=== PATIENT | male | born 1970 | race Caucasian/White ===

== ENCOUNTER → 2018-08-11 11:03 | Outpatient (CLI) | payer SELFPAY ==
--- NOTE | 2018-08-11 11:09 | XR_ITS ---
XR elbow RT min 3V HISTORY: ITS.REASON: RT ELBOW PAIN ORDERING PHYSICIAN: Caryn Choi APRN PATIENT AGE: 48 years COMPARISON: None FINDINGS: There are no previous exams available for comparison. The distal humerus is angulated laterally. Prominent spurring is present anteriorly at the distal humerus medially and at the coracoid process. A loose body is present posteriorly in the olecranon fossa region measuring 18 mm. IMPRESSION: 1. 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 2. Lateral angulation of the distal humerus consistent with an old injury
== END ==
PROVIDERS: PCP Emergency Medicine; Visit Provider Nurse Practitioner Family
DX: M25.521 Pain in right elbow (principal)
CPT/HCPCS: 73080

== ENCOUNTER → 2021-06-26 14:23 | Outpatient (CLI) | payer SELFPAY | PROVIDERS: Visit Provider Nurse Practitioner Family | DX: R42 Dizziness and giddiness (principal) | CPT/HCPCS: 87086 ==

== ENCOUNTER 2022-01-07 10:09 | Emergency (ER) | payer SELFPAY ==
[2022-01-07 10:30] VITALS: BP 149/94; PULSE 76; RESP 18; TEMP 36.6; O2SAT 98; BMI 28.1
--- NOTE | 2022-01-07 10:56 | EXP.UTC ---
Discharge Plan Disposition Patient Disposition: Home, Self-Care Condition: Good Prescriptions Prescriptions: New cephalexin 500 mg capsule 500 mg PO QID 10 Days Qty: 40 0RF sulfamethoxazole-trimethoprim [Bactrim DS] 800-160 mg tablet 1 tab PO Q12H 10 Days Qty: 20 0RF No Action diltiazem HCl 240 mg capsule,extended release 24 hr 240 mg PO DAILY cephalexin 500 mg capsule 500 mg PO Q12H 10 Days Qty: 20 0RF Referrals Follow up/Referrals: Kayleigh Do APRN [Primary Care Provider] - See instructions Activity Restrictions/Add. Instructions Additional Instructions/Restrictions: *Start antibiotic(s) immediately and be sure to take as ordered for the FULL length of time although you may be feeling better or start to see improvement in the next 24-48 hours *Monitor closely. Outlined redness so that you can monitor easier. Follow up immediately for new or worsening symptoms including but not limited to redness, swelling, streaking from site fever or chills. *Warm compress 15 minutes 3-4 times day *Never squeeze or pop these on your own. Seek immediate medical attention next time this occurs *Monitor Temp. Tylenol every 4 hours as needed and ibuprofen every 6 hours as needed (as long as your primary care doctor has told you that it is ok to take both. For fever, aches, pain. ER if no less that 101 despite Tylenol and ibuprofen ?Follow up with your family doctor/primary care physician in the next 48-72 hours if no improvement Clinical Impressions Clinical Impression: Cellulitis Instructions Patient Instructions: Cellulitis Discharge ED Provider: Yvonne Mckenzie [facility] General Stated complaint: AO 12/30/21 Cut LT leg Mode of Arrival: Ambulatory Source of Information: Patient and Spouse Limitations: No Limitations Time Seen by Provider: 01/07/22 10:56 Description of Symptoms (Recalled from Triage Doc. by RN): PATIENT STATES HE HIT HIT LEFT LEG ON A CEDAR POST ON 12/30. TODAY HE C/O REDNESS TO AREA THAT GOES UP THE LEG AND PAIN AROUND KNEE AREA HEENT Symptoms (Recalled from RN notes): No Resp Symptoms (Recalled from RN notes): No Skin Symptoms (Recalled from RN notes): Yes MS Symptoms (Recalled from RN notes): No Functional Status (Recalled from RN notes): WNL History of Present Illness Provider Complaint: Patient states that foot ag on 12/30 and struck himself in the left guadarrama area causing small cut to his lower leg State that he has been putting salve on it but noticed he was having some swelling yesterday and redness around the lac that is starting to move up his leg State that this morning he was a little achy in his knee that is relived with walking and wanted to come in and get it checked before it got too bad Related Data Home Medications Medication Instructions Recorded Confirmed diltiazem HCl 240 mg capsule,24 240 mg PO DAILY 09/16/18 06/26/21 hr,extended release Previous Rx's Medication Instructions Recorded cephalexin 500 mg capsule 500 mg PO Q12H 10 days #20 caps 06/26/21 cephalexin 500 mg capsule 500 mg PO QID 10 days #40 caps 01/07/22 sulfamethoxazole 800 1 tab PO Q12H 10 days #20 tabs 01/07/22 mg-trimethoprim 160 mg tablet (Bactrim DS) Allergies Allergy/AdvReac Type Severity Reaction Status Date / Time No Known Allergies Allergy Verified 06/26/21 13:03 Worker's Comp Is this a Worker's Comp case?: No PFSH PFSH Medical History (Updated 01/07/22 @ 11:37 by Yvonne Mckenzie APRN) Atrial fibrillation Hypertension Social History (Updated 01/07/22 @ 10:45 by Jacy Iqbal RN) Smoking Status: Never smoker alcohol intake: never current occupational status: other Travel in the last 8 weeks: None ROS Obtained: Yes All systems reviewed & no additional complaints except as documented and Yes Systems reviewed as appropriate & no additional complaints except as documented Constitutional Constitutional: Reports system reviewed and no additional complaints, e
--- NOTE | 2022-01-07 11:01 | XR_ITS ---
FINAL REPORT CLINICAL HISTORY: INJURY 1 week ago, pain and redness mid leg FINDINGS: LEFT TIBIA FIBULA 2 views were obtained. There is no acute fracture or dislocation. The joint spaces are intact. There is no soft tissue abnormality. IMPRESSION: No acute fracture Reviewed, Interpreted and Dictated by Jacqueline Patel MD Transcribed by Genesis Spaulding Authenticated and [facility]
[2022-01-07 11:48] VITALS: BP 149/94; PULSE 76; RESP 18; TEMP 36.6; O2SAT 98
== END 2022-01-07 11:50 | disposition home or self-care (01) ==
PROVIDERS: Emergency Provider Nurse Practitioner; PCP Nurse Practitioner Family
DX: L03.116 Cellulitis of left lower limb (principal)
CPT/HCPCS: 73590; 99212; G0463

== ENCOUNTER 2022-01-09 10:00 | Emergency (ER) | payer SELFPAY ==
[2022-01-09 10:02] VITALS: BP 156/104; PULSE 70; RESP 16; TEMP 36.7; O2SAT 97; BMI 27.3
--- NOTE | 2022-01-09 10:05 | HMH.EDGENADL ---
Discharge Plan Disposition Patient Disposition: Home, Self-Care Prescriptions Prescriptions: No Action diltiazem HCl 240 mg capsule,extended release 24 hr 240 mg PO DAILY aspirin [Aspir-81] 81 mg Tablet,Delayed Release (Dr/Ec) 81 mg PO DAILY sulfamethoxazole-trimethoprim [Bactrim DS] 800-160 mg tablet 1 tab PO Q12H cephalexin 500 mg capsule 500 mg PO QID Clinical Impressions Clinical Impression: Leg injury Instructions Patient Instructions: Contusion, DI for Contusion Discharge ED Provider: Mckinley Hickey General Adult HPI General Chief complaint: Extremity Injury, Lower Stated complaint: discoloration, slight pain in Lt leg Time Seen by Provider: 01/09/22 10:05 Mode of Arrival: Ambulatory History of Present Illness HPI narrative: 51-year-old male with past medical history of atrial fibrillation on aspirin, reports history of blood clots as well other not on anticoagulant. He sustained an injury whereby and adze struck the guadarrama of the left lower extremity on 12/30, approximately 10 days ago. He was subsequently seen in the urgent care for redness of the lower extremity was started on Bactrim and Keflex. He had reported knee pain previously that seemed to improve after antibiotics. He presents back today as there is a red area which has enlarged to approximately 5 cm and purpleish discoloration distally. He also reports sensation of fullness in the thigh on the left. He denies fever, chills, nausea, vomiting, palpitations, chest pain or trouble breathing. Related Data Home Medications Medication Instructions Recorded Confirmed diltiazem HCl 240 mg capsule,24 240 mg PO DAILY afib 09/16/18 01/09/22 hr,extended release aspirin 81 mg tablet,delayed 81 mg PO DAILY heart, hx of afib 01/09/22 01/09/22 release cephalexin 500 mg capsule 500 mg PO QID cellulitis 01/09/22 01/09/22 sulfamethoxazole 800 1 tab PO Q12H cellulitis 01/09/22 01/09/22 mg-trimethoprim 160 mg tablet (Bactrim DS) Allergies Allergy/AdvReac Type Severity Reaction Status Date / Time No Known Allergies Allergy Verified 06/26/21 13:03 [facility] Medical History (Updated 01/09/22 @ 11:34 by Mckinley Hickey MD) Atrial fibrillation Hypertension Surgical History (Updated 01/09/22 @ 10:38 by Yessi Knox RN) History of radiofrequency ablation (RFA) procedure for cardiac arrhythmia Social History Smoking Status: Never smoker alcohol intake: never current occupational status: other Travel in the last 8 weeks: None ROS Obtained: Yes Systems reviewed as appropriate & no additional complaints except as documented Constitutional Constitutional: Reports system reviewed and no additional complaints, except as documented Eyes Eyes: Reports system reviewed and no additional complaints, except as documented ENT Ears, Nose, Mouth, and Throat: Reports system reviewed and no additional complaints, except as documented Cardiovascular Cardiovascular: Reports system reviewed and no additional complaints, except as documented Respiratory Respiratory: Reports system reviewed and no additional complaints, except as documented Gastrointestinal Gastrointestingal: Reports system reviewed and no additional complaints, except as documented Genitourinary Male Genitourinary: Reports system reviewed and no additional complaints, except as documented Musculoskeletal Musculoskeletal: Reports system reviewed and no additional complaints, except as documented and Reports as per HPI Integumentary/Breasts Skin/Breast: Reports system reviewed and no additional complaints, except as documented Neurologic Neurologic: Reports system reviewed and no additional complaints, except as documented Endocrine Endocrine: Reports system reviewed and no additional complaints, except as documented Hematologic/Lymphatic Henatologic/Lymphatic: Reports system reviewed and no additional
--- NOTE | 2022-01-09 10:13 | PC.NURSE ---
pt getting changed into a gown at this time
--- NOTE | 2022-01-09 10:20 | PC.NURSE ---
ER at gave verbal orders for labs and venous doppler order.
[2022-01-09 10:23] VITALS: BMI 27.3
--- NOTE | 2022-01-09 10:23 | CA_ITS ---
FINAL REPORT TECHNIQUE: Compression no scale and Doppler evaluation CLINICAL HISTORY: hx of dvt > 5 years ag, swelling, pain is thigh. Redness left calf anterior portion. Patient states he recently started antibiotics for treatment of leg. FINDINGS: Femoral and popliteal veins show normal compressibility and flow. Visualized portion of the calf veins are patent by Doppler exam. IMPRESSION: No evidence of left lower extremity deep venous thrombosis Reviewed, Interpreted and Dictated by Jacqueline Patel MD Transcribed by Chino Pennington Authenticated and [facility]
[2022-01-09 10:30] VITALS: BP 128/93; PULSE 69; RESP 18; O2SAT 97
--- NOTE | 2022-01-09 10:30 | PC.NURSE ---
ECHO LAB NOTIFIED
--- NOTE | 2022-01-09 10:38 | PC.NURSE ---
cv lab staff notified of doppler order
--- NOTE | 2022-01-09 10:43 | PC.NURSE ---
CV lab staff at
--- NOTE | 2022-01-09 10:44 | PC.NURSE ---
ECHO LAB HERE FOR DOPPLER
[2022-01-09 10:45] VITALS: BP 184/97; PULSE 67; O2SAT 95
[2022-01-09 10:54] LABS: Chloride 98 mmol/L (98-107); Sodium 137 mmol/L (136-145)
[2022-01-09 10:55] LABS: Potassium 4.3 mmoL/L (3.5-5.1)
[2022-01-09 10:57] LABS: Alanine Aminotransferase 27 U/L (12-78); Albumin Level 4.7 g/dl (3.5-5.0); Alkaline Phosphatase 57 U/L (38-126); Aspartate Amino Transferase 36 U/L (17-59); Blood Urea Nitrogen 14 mg/dl (9-20); Creatinine Clearance Estimated 101 mL/min (50-200); Estimated Glomerular Filt Rate 79 ml/min (>60); GFR (African American) 95 ML/MIN (>60)
[2022-01-09 10:58] LABS: Albumin/Globulin Ratio 1.9 (1.1-1.8); Anion Gap 17.3 mEq/L (5-15); Bilirubin,Total < 0.1 mg/dl (0.2-1.3); Carbon Dioxide 26 mmol/L (22.0-30.0); Globulin 2.5 g/dL (1.3-3.2); Glucose 104 mg/dl (74-100); Total Protein,Serum 7.2 g/dl (6.3-8.2)
[2022-01-09 11:00] VITALS: BP 130/91; PULSE 75; RESP 18; O2SAT 98
--- NOTE | 2022-01-09 11:00 | PC.NURSE ---
per cv lab staff, states pt doppler if negative. Notified ER
[2022-01-09 11:06] LABS: Basophils # 0.2 K/mm3 (0-0.2); Eosinophils # 0.2 K/mm3 (0.0-0.4); Eosinophils % 3.1 % (0.1-12.0); Hematocrit 48.7 % (42.0-52.0); Hemoglobin 16.2 g/dL (14.1-18.0); Lymphocytes # 1.6 K/mm3 (0.7-4.5); Lymphocytes % 25.2 % (10-50); Mean Corpuscular HGB Conc 33.2 g/dL (31.8-35.4); Mean Corpuscular Hemoglobin 31.2 pg (27.0-31.2); Mean Platelet Volume 8.2 fl (7.4-10.4); Monocytes # 0.6 K/mm3 (0.1-1.0); Neutrophils # 3.8 K/mm3 (1.8-7.8); Neutrophils % 59.7 % (37.0-80.0); Platelet Count 252 K/mm3 (142-424); Red Blood Count 5.18 M/mm3 (4.60-6.20); Red Cell Distribution Width 13.3 % (11.5-17.5); White Blood Count 6.4 K/mm3 (4.8-10.8)
[2022-01-09 11:14] LABS: Procalcitonin 0.042 ng/mL (0.0-2.0)
--- NOTE | 2022-01-09 11:18 | PC.NURSE ---
checked on pt, he was lying in bed , nothing needed at this time
--- NOTE | 2022-01-09 11:23 | PC.NURSE ---
michael shah came by to check on pts
[2022-01-09 11:54] VITALS: BP 139/89; PULSE 76; RESP 18; TEMP 36.7; O2SAT 99
== END 2022-01-09 11:54 | disposition home or self-care (01) ==
PROVIDERS: Emergency Provider Emergency Medicine
DX: S89.92XA Unspecified injury of left lower leg, initial encounter (principal); W22.8XXA Striking against or struck by other objects, initial encounter
CPT/HCPCS: 80053; 84145; 85025; 93971; 99284

== ENCOUNTER → 2022-10-16 14:15 | Outpatient (CLI) | payer SELFPAY | LOC: RT 14:15 | PROVIDERS: Visit Provider Internal Medicine | DX: R06.02 Shortness of breath (principal) | CPT/HCPCS: 93306 ==

== ENCOUNTER → 2022-11-17 06:50 | Outpatient (CLI) | payer SELFPAY ==
--- NOTE | 2022-11-17 | CA_ITS ---
APPROVED REPORT Exam: Pharmacologic Technologist: Lety Douglas, Ht: 5 ft 9 in Wt: 189 lbs BSA: 2.02 m2 HR: 59 bpm BP: 129/86 mmHg Rhythm: NSR Medical History Medications: BisOPROLOL Fumarate,,,,, Losartan-HCTZ,,,,, DilTiazem HCI,,,,, Stress Test Details Test: Donnell HR Resting HR: 54 bpm Max Heart Rate (APMHR): 168 bpm Max HR Achieved: 108 bpm Target HR (85% APMHR): 143 bpm % of APMHR: 64 Recovery HR: 64 bpm HR response to stress: Blunted HR response to stress BP Resting BP: 134.0/94.0 mmHg Max BP: 161.0/71.0 mmHg Recovery BP: 147.0/75.0 mmHg BP response to stress: Normal blood pressure response to stress. ECG Resting ECG: Sinus bradycardia Stress EC mm horizontal ST depression Arrhythmia: None Recovery ECG: Return to baseline within 3 minutes of recovery Recovery Arrhythmia: None Clinical Exercise duration: 08:43 min Highest Stage Achieved: III Exercise capacity: 10.1 METs Overall Exercise Capacity for Age: Average Stress ECG Conclusion This was a suboptimal EKG stress test due to inability to achieve > 85% max HR. The patient was able to exercise for a total of 8:43. He achieved 10.1 METS. He has a blunted HR response, but normal BP response, to exercise Max HR: 108 % of PM: 64 Max BP: 161/71 METs: 10.1 Test stopped due to: dyspnea Symptoms: Dyspnea Arrhythmias/Ectopy: None ST-T Changes: [address] depression. Conclusion: Average exercise capacity. Blunted HR response to exercise. Suboptimal ECG stress test due to inability to achieve target HR. At peak stress, ECG stress test demonstrates [address] depression, suggestive of possible ischemia. Test Summary REST . . . . . . . Sitting REST . . . . . . . Standing REST 02:42 0.0 0.0 54 . 134/ 94 . . Stage 1 01:00 10.0 1.7 78 . . . . Stage 1 02:00 10.0 1.7 85 . . . . Stage 1 03:00 10.0 1.7 87 . . . . Stage 2 01:00 12.0 2.5 91 . 142/ 90 . . Stage 2 02:00 12.0 2.5 96 . 142/ 90 . . Stage 2 03:00 12.0 2.5 98 . 140/ 92 . . Stage 3 01:00 14.0 3.4 105 . . . . Stage 3 . . . . . . . Myoview Injected Stage 3 02:00 14.0 3.4 105 . . . . Stage 3 02:43 14.0 3.4 108 . . . Stop exercise at 08:43 RECOVERY 01:00 0.0 0.0 86 . 158/ 94 . . RECOVERY 02:00 0.0 0.0 65 . 158/ 94 . . RECOVERY 03:00 0.0 0.0 73 . 144/ 78 . . RECOVERY 04:00 0.0 0.0 69 . 161/ 71 . . RECOVERY 05:00 0.0 0.0 64 . 161/ 71 . . RECOVERY 05:47 0.0 0.0 64 . 147/ 75 . . Electronically signed by : Santa Wilcox, 11/17/2022 23:04:03
--- NOTE | 2022-11-17 06:55 | NM_ITS ---
APPROVED REPORT Exam: Nuclear Stress Test Indication: HTN, C.P., SOB, PALPITATIONS, SYNCOPE Patient Location: Outpatient Stress Tech: Lety Donald [place] Tech:Dede Li, ARRT RT (R)(N)(M) Ht: 5 ft 7 in Wt: 180 lbs HR: 59 bpm BP: 129/86 mmHg BSA: 1.93 m2 Rhythm: NSR TID: 1.12 BMI: 28.1 History: HTN, C.P., SOB, PALPITATIONS, SYNCOPE Procedure: Patient exercised on Donnell protocol 8:43 minutes and sec, resting heart rate 59 bpm, resting blood pressure 129/86 mmHg, with exercise maximum heart rate achived was 108 bpm which is 64 % of the maximum predicted heart rate and blood pressure was 161/71 mmHg. Test was stopped due to SOB. Patient denied any complaint of chest pain. Patient has Average exercise capacity, achieved 10.1 METs of workload on treadmill, the blood pressure response to exercise was Normal. Cardiac Stress and Resting SPECT Images: Cardiac Stress and Resting SPECT images were obtained using technetium 99m Myoview 31.9 mCi stress and 10.24 mCi at rest. This was a limited study as the stress test was suboptimal due to patient unable to achieve target HR during treadmill exercise. Also, the patient could not lie on his abdomen. Therefore, prone stress imaging could not be obtained. This may affect the diagnostic interpretation of the study findings. Resting and stress imaging in supine position demonstrate a medium sized, moderate, fixed perfusion defect in the inferior LV wall. The perfusion defect has a tapered appearance, suggestive of possible diaphragmatic attenuation. True perfusion defect cannot be entirely ruled out due to limited study. Gated imaging demonstrates normal global and regional LV systolic function. LVEF is calculated at 54%. Conclusion: This was a suboptimal stress test due to patient unable to achieve target HR during treadmill exercise. Also, the patient could not lie on his abdomen. Therefore, prone stress imaging could not be obtained. This may affect the diagnostic interpretation of the study findings. Resting and stress imaging in supine position demonstrate a medium sized, moderate, fixed perfusion defect in the inferior LV wall. The perfusion defect has a tapered appearance, suggestive of possible diaphragmatic attenuation. True perfusion defect cannot be entirely ruled out due to limited study in the setting of 1) suboptimal stress testing, and 2) possible diaphragmatic attenuation. Gated imaging demonstrates normal global and regional LV systolic function. LVEF is calculated at 54%. Electronically signed by : Santa Wilcox, 11/17/2022 23:09:26
== END ==
LOC: RAD 06:52
PROVIDERS: Visit Provider Internal Medicine
DX: R07.89 Other chest pain (principal); R06.09 Other forms of dyspnea
CPT/HCPCS: 78452; 93017; A9502

== ENCOUNTER 2022-12-08 07:36 | Day surgery (SDC) | payer SELFPAY ==
[2022-12-08] VITALS (11 sets, daily range): BP systolic 95–140; BP diastolic 46–92; PULSE 56–69; RESP 16–20; O2SAT 93–98; BMI 28.2
--- NOTE | 2022-12-08 07:07 | IR_ITS ---
APPROVED REPORT Patient Location: Outpatient PROCEDURES Left heart catheterization Left ventriculogram Selective coronary angiogram INDICATION Abnormal stress test Informed consent was obtained prior to the procedure. COMPLICATIONS None Estimated Blood Loss: Less than 10 mls TECHNIQUE One percent lidocaine used to anesthetize the right anterior aspect of the wrist. The right radial artery was accessed via the Seldinger technique. A 6 Divehi sheath was placed in the right radial artery. 2.5 mg of Verapamil, 800 mcg of nitroglycerin, 1mg Lidocaine and 5000 U Heparin were given through the arterial sheath. The papa catheter was also used to perform left heart catheterization, left ventriculogram and selective coronary angiogram. At the end of the procedure the sheath was removed good hemostasis was achieved using Traclet band, patient was transferred to the postop holding area in stable condition. ANGIOGRAPHIC RESULTS The left main artery Normal The left anterior descending artery Normal The circumflex artery Codominant normal The right coronary artery Codominant normal The LEDESMA ventriculogram reveals Normal 65% The left ventricular end-diastolic pressure 10 to 15 mmHg IMPRESSION Normal coronary arteries Normal ejection fraction Normal left ventricular diastolic pressure PLAN 1. Continue treatment of hypertension Electronically signed by : Ruiz Bradshaw MD 12/08/2022 09:45:51
[2022-12-08 08:06] LABS: Basophils % 0.3 % (0.1-2.0); Eosinophils # 0.4 K/mm3 (0.0-0.4); Eosinophils % 5.1 % (0.1-12.0); Hematocrit 47.1 % (42.0-52.0); Hemoglobin 15.6 g/dL (14.1-18.0); Lymphocytes # 2.2 K/mm3 (0.7-4.5); Lymphocytes % 29.2 % (10-50); Mean Corpuscular HGB Conc 33.1 g/dL (31.8-35.4); Mean Corpuscular Hemoglobin 30.7 pg (27.0-31.2); Mean Corpuscular Volume 92.6 fl (80-94); Mean Platelet Volume 8.3 fl (7.4-10.4); Monocytes # 0.8 K/mm3 (0.1-1.0); Monocytes % 10.2 % (1.7-9.3); Neutrophils # 4.1 K/mm3 (1.8-7.8); Neutrophils % 55.1 % (37.0-80.0); Platelet Count 208 K/mm3 (142-424); Red Blood Count 5.08 M/mm3 (4.60-6.20); Red Cell Distribution Width 13.1 % (11.5-17.5); White Blood Count 7.5 K/mm3 (4.8-10.8)
[2022-12-08 08:10] LABS: Chloride 102 mmol/L (98-107); Potassium 3.8 mmoL/L (3.5-5.1); Sodium 138 mmol/L (136-145)
[2022-12-08 08:13] LABS: Blood Urea Nitrogen 14 mg/dl (9-20); Creatinine Clearance Estimated 118 mL/min (50-200); Estimated Glomerular Filt Rate 89 ml/min (>60); GFR (African American) 107 ML/MIN (>60)
[2022-12-08 08:14] LABS: Anion Gap 12.8 mEq/L (5-15); Calcium 9.4 mg/dl (8.4-10.2); Carbon Dioxide 27 mmol/L (22.0-30.0); Glucose 104 mg/dl (74-100)
== END 2022-12-08 12:30 | disposition home or self-care (01) ==
PROVIDERS: Visit Provider Internal Medicine
DX: R94.39 Abnormal result of other cardiovascular function study (principal); I10 Essential (primary) hypertension; Z79.899 Other long term (current) drug therapy
CPT/HCPCS: 80048; 85025; 93458; 99152; C1725; C1769; J1644; Q9967

== ENCOUNTER → 2023-03-11 08:38 | Outpatient (CLI) | payer SELFPAY ==
[2023-03-11 08:58] LABS: Basophils % 0.3 % (0.1-2.0); Eosinophils # 0.3 K/mm3 (0.0-0.4); Eosinophils % 3.2 % (0.1-12.0); Hematocrit 47.9 % (42.0-52.0); Hemoglobin 15.8 g/dL (14.1-18.0); Lymphocytes # 1.8 K/mm3 (0.7-4.5); Lymphocytes % 20.6 % (10-50); Mean Corpuscular Hemoglobin 31.7 pg (27.0-31.2); Mean Corpuscular Volume 95.9 fl (80-94); Mean Platelet Volume 8.1 fl (7.4-10.4); Monocytes # 0.7 K/mm3 (0.1-1.0); Monocytes % 7.8 % (1.7-9.3); Neutrophils # 5.8 K/mm3 (1.8-7.8); Neutrophils % 68.1 % (37.0-80.0); Platelet Count 201 K/mm3 (142-424); Red Blood Count 4.99 M/mm3 (4.60-6.20); Red Cell Distribution Width 13.2 % (11.5-17.5); White Blood Count 8.6 K/mm3 (4.8-10.8)
[2023-03-11 15:33] LABS: Occult Blood,Stool Negative (Negative)
[2023-03-16 22:39] LABS: Calprotectin, Fecal 84 ug/g (0-120)
== END ==
LOC: LAB.DROPOF 08:39
PROVIDERS: Visit Provider Nurse Practitioner
DX: K92.1 Melena (principal); R06.00 Dyspnea, unspecified; K21.9 Gastro-esophageal reflux disease without esophagitis; R10.13 Epigastric pain
CPT/HCPCS: 36415; 82272; 83993; 85025; G0328

== ENCOUNTER 2023-03-19 09:04 | Day surgery (SDC) | payer SELFPAY ==
[2023-03-19 10:06] VITALS: BP 144/81; PULSE 61; RESP 18; TEMP 36.6; O2SAT 97; BMI 29.0
--- NOTE | 2023-03-19 10:51 | EXP.ANES.CKL ---
[facility] Disclaimer: The information contained in this section may have been updated after the patient was seen, as this information can be updated by other users. Medical History Atrial fibrillation History of 2019 novel coronavirus disease (COVID-19) Hypertension Wheezing without diagnosis of asthma Surgical History History of radiofrequency ablation (RFA) procedure for cardiac arrhythmia Hx of prior ablation treatment Family History Father Alcoholism Coronary artery disease Hyperlipidemia Brother Cancer Coronary artery disease Mother Diabetes Hyperlipidemia Hypertension Social History Smoking Status: Never smoker alcohol intake: current substance use type: denies use current occupational status: employed and other Travel in the last 8 weeks: None caffeine: No [facility] Anesthesia Checklist Patient Identification Patient Identification: Verbal (Name & ) Structural Data Admitted From: Home Planned Operative Procedure/s: egd/colonoscopy Consent for Planned Operative Procedure(s) Verified: Yes NPO Status Verified Time NPO: 00:00 Airway Assessment Mallampati Score:: Class II C-Spine Mobility Assessed: Yes TMJ Mobility Assessed: Yes Dentition: Good Dentition Neurological Assessment Level of Consciousness: Awake, Alert and Appropriate Anesthesia Plan Anesthesia Risk discussed: Yes Anesthesia Plan: Verified ASA Class: III Anesthesia Type: MAC
--- NOTE | 2023-03-19 11:14 | HMH.SCOPE ---
Procedure: Date: 03/19/23 Patient Date of :: 1970 Procedure Performed:: EGD & biopsies Indications:: Dyspepsia, nausea/vomiting Performing Provider:: Fxo Payne MD Referring Provider:: Argelia Payne APRN Sedation:: Propofol Procedure:: The gastroscope was gently passed through the incisoral orifice into the oral cavity and under direct visualization the esophagus was intubated. The endoscope was passed down the esophagus, through the stomach, and into the duodenum. Color, texture, mucosa, and anatomy of the esophagus, stomach, and duodenum were carefully examined with the scope. Findings:: Oropharynx: normal Esophagus: normal EG Junction: intact at 40 cm Cardia: normal Fundus: normal Body: normal, random biopsies obtained Antrum: normal Duodenal bulb: normal Duodenum (second and third portion): normal Impression: Normal EGD, random biopsies obtained for evaluation of h.pylori Specimens:: Gastric Recommendations:: F/U with PCP Complications:: None Estimated blood obtained (mL): 0 Colonoscopy Component Colonoscopy Component Was a colonoscopy performed during today's procedure?: No
[2023-03-19 11:15] VITALS: BP 102/67; PULSE 65; RESP 16; TEMP 36.5; O2SAT 92
--- NOTE | 2023-03-19 11:18 | HMH.SCOPE ---
Procedure: Date: 03/19/23 Patient Date of :: 1970 Procedure Performed:: Screening colonoscopy Indications:: Colon cancer screening Performing Provider:: Fox Payne MD Referring Provider:: Argelia Payne APRN Sedation:: Propofol Procedure:: After placing the patient in the left lateral decubitus position, the colonoscopy was gently inserted into the rectum and under direct visualization advanced to the cecum which was identified by transillumination in the right lower quadrant, identification of the ileocecal valve, appendiceal orifice, and cecal strap. Color, texture, mucosa, and anatomy of the colon were carefully examined with the scope. Findings:: Anal canal: normal Rectum: normal Sigmoid colon: normal without polyps or inflammatory changes Descending colon: normal without polyps or inflammatory changes Splenic flexure: normal Transverse colon: normal without polyps or inflammatory changes Hepatic flexure: normal Ascending colon: normal without polyps or inflammatory changes Cecum: normal Terminal ileum: not visualized Impression: Normal colonoscopy Recommendations:: Follow up examination in about TEN years or so, sooner if clinically indicated. Complications:: None Estimated blood obtained (mL): 0 Colonoscopy Component Colonoscopy Component Was a colonoscopy performed during today's procedure?: Yes Recommended follow up colonoscopy of at least 10 years?: Yes
[2023-03-19 11:25] VITALS: BP 98/62; PULSE 59; RESP 16; O2SAT 95
[2023-03-19 11:35] VITALS: BP 97/67; PULSE 54; RESP 16; O2SAT 95
[2023-03-19 11:45] VITALS: BP 110/62; PULSE 55; RESP 16; TEMP 36.6; O2SAT 94
== END 2023-03-19 12:00 | disposition home or self-care (01) ==
PROVIDERS: PCP Internal Medicine; Visit Provider Internal Medicine Gastroenterology
PROC: 0DJ08ZZ Inspection of Upper Intestinal Tract, Via Natural or Artificial Opening Endoscopic (ICD-10-PCS; CPT 43235; principal; 2023-03-19 11:00)
DX: K29.60 Other gastritis without bleeding (principal); B96.81 Helicobacter pylori [H. pylori] as the cause of diseases classified elsewhere; Z12.11 Encounter for screening for malignant neoplasm of colon
CPT/HCPCS: 43239; 45378

== ENCOUNTER 2023-04-22 08:10 | Outpatient (CLI) | payer SELFPAY ==
[2023-04-22 08:40] VITALS: PULSE 73; PULSE 78
[2023-04-22] MEDS: ALBUTEROL 0.083% 2.5 MG/3 ML NEB IH (08:40)
--- NOTE | 2023-04-22 09:26 | FL_ITS ---
FINAL REPORT CLINICAL HISTORY: vomiting 435.00 dap .52 fluoro time FINDINGS: IMPRESSION: Partial left diaphragm paresis Authenticated and [facility]
--- NOTE | 2023-04-22 11:21 | XR_ITS ---
FINAL REPORT CLINICAL HISTORY: sob COMPARISON: None FINDINGS: Two views of the chest were obtained. The heart size and pulmonary vascularity are within normal limits. The mediastinum is normal. No acute pulmonary abnormality is identified. There is no pneumothorax. The bony thorax is intact. IMPRESSION: No active cardiopulmonary disease. Reviewed, Interpreted and Dictated by Zenon Olivares III, MD Transcribed by Mala Odell Authenticated and [facility]
== END 2023-04-22 23:59 ==
LOC: RT 08:11
PROVIDERS: Visit Provider Internal Medicine Pulmonary Disease
DX: J98.6 Disorders of diaphragm (principal); R06.02 Shortness of breath
CPT/HCPCS: 71046; 76000; 94060; 94618; 94640; 94726; 94729